=== PATIENT | female | born 1990 | race Caucasian/White ===

== ENCOUNTER 2017-11-19 08:51 | Emergency (ER) | payer OTHER ==
--- NOTE | 2017-11-19 09:05 | PDOC ---
History of Present Illness <Radha Gould - Last Filed: 11/19/17 13:37> - History of Present Illness Initial Comments: 26 year old female with PMH of an ovarian cyst and nephrolithiasis presenting with sudden onset right sided abdominal pain radiating to her right flank/ back for the past one hour with nausea and diarrhea. She does feel that it is difficult to fully urinate along with a sensation of urgency. She states this may be similar in quality to her previous episode of nephrolithiasis 2-3 year ago. Denies fevers, chills, constipation, vomiting, headache, focal neuro deficit, hematuria, cough, or chest pain. 11/19/17 09:41 <Moy Henderson - Last Filed: 11/19/17 13:50> - General Stated Complaint: ABD PAIN Time Seen by Provider: 11/19/17 09:05 Past History <Radha Gould - Last Filed: 11/19/17 13:37> - Past Medical History Asthma: No Diabetes: No HTN: No - Reproductive History (#): 3 Para: 1 Cervical CA: No Dysfunctional Uterine Bleeding: No Ectopic : No Endometrial CA: No Polycystic Ovaries: No Therapeutic (s) & number: Yes Tubal Ligation: No Spontaneous : 1 - Immunization History Immunization Up to Date: Yes - Suicide/Smoking/Psychosocial Hx Smoking Status: No Smoking History: Never smoked Have you smoked in the past 12 months: No Number of Cigarettes Smoked Daily: 0 Hx Alcohol Use: No Drug/Substance Use Hx: No Substance Use Type: None <Moy Henderson - Last Filed: 11/19/17 13:50> - Past Medical History Allergies/Adverse Reactions: Allergies Allergy/AdvReac Type Severity Reaction Status Date / Time acetaminophen [From Percocet] Allergy Verified 11/19/17 09:11 oxycodone HCl [From Percocet] Allergy Verified 11/19/17 09:11 Home Medications: Ambulatory Orders Ibuprofen [Motrin -] 400 mg PO QID PRN #28 tablet 11/23/15 Ibuprofen [Motrin -] 600 mg PO TID PRN #90 tablet 11/19/17 Review of Systems - Review of Systems Constitutional: No: Chills, Diaphoresis, Fever HEENTM: No: Blurred Vision, Tearing, Recent change in vision Respiratory: No: Cough, Orthopnea, Shortness of Breath Cardiac (ROS): No: Chest Pain, Edema ABD/GI: Yes: Diarrhea, Nausea, Poor Appetite. No: Rectal Bleeding, Vomiting, Indigestion : Yes: Frequency, Flank Pain, Urgency. No: Burning, Dysuria Musculoskeletal: Yes: Back Pain. No: Joint Pain, Joint Swelling Integumentary: No: Bruising, Change in Color, Lumps, Pruritus Neurological: No: Headache, Numbness, Paresthesia Hematologic/Lymphatic: No: Blood Clots, Easy Bleeding <Moy Henderson - Last Filed: 11/19/17 13:50> *Physical Exam - Vital Signs Last Vital Signs Temp Pulse Resp BP Pulse Ox 97.5 F L 76 16 104/70 98 11/19/17 09:11 11/19/17 09:11 11/19/17 09:11 11/19/17 09:11 11/19/17 09:28 <Radha Gould - Last Filed: 11/19/17 13:37> - Physical Exam General Appearance: Yes: Nourished, Appropriately Dressed, Apparent Distress, Mild Distress HEENT: positive: EOMI, DAYANA, Normal ENT Inspection, Normal Voice Neck: positive: Trachea midline, Normal Thyroid, Supple. negative: Tender, Rigid Respiratory/Chest: positive: Lungs Clear, Normal Breath Sounds. negative: Chest Tender, Respiratory Distress, Accessory Muscle Use Cardiovascular: positive: Regular Rhythm, Regular Rate Gastrointestinal/Abdominal: positive: Normal Bowel Sounds, Flat, Soft. negative : Tender Musculoskeletal: positive: Normal Inspection. negative: CVA Tenderness Extremity: positive: Normal Capillary Refill, Normal Inspection, Normal Range of Motion. negative: Tender Integumentary: positive: Normal Color, Dry, Warm Neurologic: positive: manager talent II-XII NML intact, Fully Oriented, Alert, Normal Mood/ Affect, Normal Response <Moy Henderson - Last Filed: 11/19/17 13:50> ED Treatment Course - LABORATORY CBC & Chemistry Diagram: 11/19/17 10:07 11/19/17 10:07 - ADDITIONAL ORDERS Additional order review: Laboratory Results 11/19/17 11/19/17 11/19/17 10:20 10:20 10:07 Sodium 137 Potassium 4.5 Chloride 107 Carbon Dioxide 25 Anion Gap 5 L BUN 11 Creatinine 0.7 Creat Clearance w eGFR > 60 Random Glucose 84 Calcium 8.3 L Total Bilirubin 0.7 D AST 14 L ALT 21 Alkaline Phosphatase 81 Total Protein 7.0 Albumin 3.7 Urine Color Yellow Urine Appearance Slcloudy Urine pH 7.0 Ur Specific [place] 1.013 Urine Protein Negative Urine Glucose (UA) Negative Urine Ketones Negative Urine Blood 3+ H Urine Nitrite Positive Urine Bilirubin Negative Urine Urobilinogen Negative Ur Leukocyte Esterase Trace Urine WBC (Auto) 6 Urine RBC (Auto) 23 Ur Epithelial Cells Rare Urine Bacteria Many Urine Mucus Rare Urine HCG, Qual Negative 11/19/17 10:07 RBC 5.38 H MCV 70.2 L MCHC 33.0 RDW 14.0 MPV 9.1 Neutrophils % 61.1 D Lymphocytes % 27.6 D Monocytes % 7.7 Eosinophils % 2.9 Basophils % 0.7 - RADIOLOGY Radiology Studies Ordered: Category Date Time Status SPIRAL- RENAL-STONE CT [CT] Stat CT Scan 11/19/17 11:06 Completed - Medications Given in the ED: ED Medications Discontinued Medications Generic Name Dose Route Start Last Admin Trade Name New PRN Reason Stop Dose Admin Ketorolac Tromethamine 15 mg 11/19/17 09:17 11/19/17 11:10 Toradol Injection - IVPUSH 11/19/17 09:18 15 mg ONCE ONE Administration Ondansetron HCl 4 mg 11/19/17 09:41 11/19/17 10:00 Zofran Injection IVPUSH 11/19/17 09:42 4 mg ONCE ONE Administration Sodium Chloride 1,000 ml 11/19/17 09:17 11/19/17 09:31 Normal Saline - IV 11/19/17 09:18 1,000 ml ONCE ONE Administration <Radha Gould - Last Filed: 11/19/17 13:37> - LABORATORY CBC & Chemistry Diagram: 11/19/17 10:07 11/19/17 10:07 <Moy Henderson - Last Filed: 11/19/17 13:50> Medical Decision Making - Medical Decision Making 26 year old female with PMH of nephrolithiasis presenting with right flank pain concerning for the same and CT abdomen corroborating stone in the bladder. Small right ovarian cyst that appears to be mildly symptomatic or asymptomatic ( convoluted in the setting of renal colic) Pain much improved after Toradol and NS. Will DC with ibuprofen and return precautions. 11/19/17 13:43 <Moy Henderson - Last Filed: 11/19/17 13:50> *DC/Admit/Observation/Transfer - Discharge Dispostion Admit: No <Radha Gould - Last Filed: 11/19/17 13:37> <Og Hendersonprosper - Last Filed: 11/19/17 13:50> Diagnosis at time of Disposition: Renal colic on right side - Discharge Dispostion Disposition: HOME Condition at time of disposition: Improved - Prescriptions Prescriptions: Ibuprofen [Motrin -] 600 mg PO TID PRN #90 tablet PRN Reason: Pain - Referrals Referrals: Herminio Vasques MD [Primary Care Provider] - Raimundo Cerna MD [Staff Physician] - - Patient Instructions Printed Discharge Instructions: Kidney Stones -- Adult Additional Instructions: you should follow up with urologist, call to schedule with dr. Cerna see referral information for phone number. or you can see your urologist if you already have one. return for fever , vomiting. persistant pain or any concerns. you can take ibuprofen 600 mg every 8 hrs as needed for pain.
[2017-11-19] MEDS ORDERED: SODIUM CHLORIDE 0.9% 1000 ML INFUS.BAG IV ONE (09:17)
[2017-11-19] MEDS ORDERED: KETOROLAC TROMETHAMINE 15 MG/ML VIAL IVPUSH ONE (09:17)
[2017-11-19 09:19] VITALS: BMI 30.9
--- NOTE | 2017-11-19 09:37 | PDOC ---
Attending Attestation - Resident Resident Name: Moy Henderson - ED Attending Attestation I have performed the following: I have examined & evaluated the patient, The case was reviewed & discussed with the resident, I agree w/resident's findings & plan, Exceptions are as noted - HPI HPI: 11/19/17 09:22 26 yo F with h/o ovarian cyst and kidney stones, here with c/o rlq pain radiating to groin. started this am. awoke pt from sleep. c/o nausea, no vomiting. no f/c no urinary compalints. is currently menstruating. no mod factors. 11/19/17 10:20 - Physicial Exam PE: 11/19/17 13:35 awake alert NAD lungs clear bilaterally heart rrr no mrg. abd soft mild right mid quad ttp, no rebond no guarding. no cva tenderness. ND. skin warm and dry. - Medical Decision Making 11/19/17 13:35 26 yo F with h/o renal stones here with c/o right sided abd pain, differential renal colic, uti pyelo, ruptured ovarian cyst. and related complaints. less likely cyst due to fact pt currently menstruating plan ct renal stone ua labs. reassess. ct with small right hydro and stone in the bladder, likely passed stone. small incidental right ovarian cyst. on repeat examination pt without pain. will dc home with urology followup.
[2017-11-19] MEDS ORDERED: ONDANSETRON 4 MG/2 ML VIAL IVPUSH ONE (09:41)
[2017-11-19] MEDS ORDERED: KETOROLAC TROMETHAMINE 15 MG/ML VIAL ONE (09:51)
[2017-11-19] MEDS ORDERED: ONDANSETRON 4 MG/2 ML VIAL ONE (09:51)
[2017-11-19 10:27] LABS: BASO % 0.7 % (0-2.0); EOS % 2.9 % (0-4.5); HEMATOCRIT 37.8 % (32.4-45.2); HEMOGLOBIN 12.5 GM/dL (10.7-15.3); LYMPH % 27.6 % (8-40); MCH 23.2 pg (25.7-33.7); MEAN CELL VOLUME 70.2 fl (80-96); MEAN PLT VOLUME 9.1 fl (7.5-11.1); MONO % 7.7 % (3.8-10.2); NEUT % 61.1 % (42.8-82.8); PLATELET COUNT 297 K/MM3 (134-434); RBC 5.38 M/mm3 (3.60-5.2); WHITE BLOOD COUNT 5.7 K/mm3 (4.0-10.0)
[2017-11-19 10:39] LABS: URINE APPEARANCE SLCLOUDY; URINE BILIRUBIN NEGATIVE (<2.0 mg/dL); URINE BLOOD 3+ (NEGATIVE); URINE COLOR YELLOW; URINE GLUCOSE (UA) NEGATIVE (NEGATIVE); URINE KETONE NEGATIVE (NEGATIVE); URINE LEUK ESTERASE TRACE (NEGATIVE); URINE NITRITE POSITIVE (NEGATIVE); URINE PROTEIN NEGATIVE (NEGATIVE); URINE UROBILINOGEN NEGATIVE mg/dL (0.2-1.0)
[2017-11-19 10:45] LABS: ALBUMIN 3.7 g/dl (3.4-5.0); ANION GAP 5 (8-16); BLOOD UREA NITROGEN 11 mg/dL (7-18); CALCIUM 8.3 mg/dL (8.5-10.1); CHLORIDE 107 mmol/L (98-107); CO2 25 mmol/L (21-32); CREATININE 0.7 mg/dL (0.55-1.02); GLUCOSE,RANDOM 84 mg/dL (74-106); POTASSIUM 4.5 mmol/L (3.5-5.1); SGOT/AST 14 U/L (15-37); SGPT/ALT 21 U/L (12-78); SODIUM 137 mmol/L (136-145)
[2017-11-19 10:48] LABS: EPI CELLS RARE /HPF (FEW); URINE BACTERIA MANY /hpf (NONE SEEN); URINE MUCUS RARE
[2017-11-19 10:48] LABS: ALK PHOS 81 U/L (45-117); BILIRUBIN,TOTAL 0.7 mg/dL (0.2-1.0)
[2017-11-19 14:19] VITALS: BP 116/75; PULSE 75; TEMP 98.2
== END 2017-11-19 14:20 | disposition home or self-care (01) ==
LOC: JER 08:51
PROC: 3E033GC Introduction of Other Therapeutic Substance into Peripheral Vein, Percutaneous Approach (ICD-10-PCS; principal; 2017-11-19)
PROC: 3E0333Z Introduction of Anti-inflammatory into Peripheral Vein, Percutaneous Approach (ICD-10-PCS; 2017-11-19)
DX: N20.0 Calculus of kidney (principal); Z87.442 Personal history of urinary calculi; N83.201 Unspecified ovarian cyst, right side
CPT/HCPCS: 36415; 74176; 80053; 81003; 81015; 84703; 85025; 99285-25; J7030

== ENCOUNTER 2017-11-22 05:36 | Emergency (ER) | payer OTHER ==
[2017-11-22 05:47] VITALS: TEMP 97.3; BMI 28.5
[2017-11-22] MEDS ORDERED: MAG HYDROX/AL HYDROX/SIMETH 30 ML UNIT-DOSE CUP PO ONE ×3 (05:55→09:31)
[2017-11-22] MEDS ORDERED: FAMOTIDINE 20 MG/50 ML IVPB 20 MG/50 ML MG IVPB ONE (05:55)
[2017-11-22] MEDS ORDERED: ONDANSETRON 4 MG/2 ML VIAL IVPB ONE (05:55)
[2017-11-22] MEDS ORDERED: ACETAMINOPHEN 1000 MG/100 ML VIAL (NON FORMULARY) IVPB ONE (05:55)
[2017-11-22] MEDS ORDERED: SODIUM CHLORIDE 1,000 ML IV STA (05:55)
[2017-11-22] MEDS ORDERED: ACETAMINOPHEN INJECTION 100 ML IVPB ONE (05:59)
[2017-11-22] MEDS ORDERED: ONDANSETRON 4 MG/2 ML VIAL ONE (06:00)
[2017-11-22] MEDS ORDERED: MAG HYDROX/AL HYDROX/SIMETH 30 ML UNIT-DOSE CUP ONE ×3 (06:00→09:38)
--- NOTE | 2017-11-22 06:06 | PDOC ---
History of Present Illness - General Chief Complaint: Pain Stated Complaint: ABD PAIN Time Seen by Provider: 11/22/17 05:45 - History of Present Illness Initial Comments: 11/22/17 06:09 "The patient is a 26 year old female, with a significant past medical history of nephrolithiasis and ovarian cysts, who presents to the emergency department with intermittent epigastric and RUQ pain over the past 2 days. The patient reports that she was in this ED two days ago for R flank pain and was diagnosed with a kidney stone. The flank pain has since subsided. However, over the past two days, the patient reports that she began to develop epigastric pain radiating into her chest. She has also been nauseous and has had a decreased appetite but denies any fever, chills, chest pain, vomiting, diarrhea, hematochezia, melena or dysuria. The patient reports that she has been taking Ibuprofen 600mg multiple times per day on an empty stomach for pain without relief of symptoms. Allergies: None reported. Past Surgical History: None reported. Social History: Non-smoker. Denies alcohol or drug use. " Past History - Past Medical History Allergies/Adverse Reactions: Allergies Allergy/AdvReac Type Severity Reaction Status Date / Time acetaminophen [From Percocet] Allergy Verified 11/23/17 10:20 oxycodone HCl [From Percocet] Allergy Verified 11/23/17 10:20 Home Medications: Ambulatory Orders Ibuprofen [Motrin -] 600 mg PO TID PRN #90 tablet 11/19/17 Cephalexin [Keflex] 500 mg PO TID #9 capsule 11/22/17 Asthma: No COPD: No Diabetes: No HTN: No Kidney Stones: Yes - Reproductive History (#): 3 Para: 1 Cervical CA: No Dysfunctional Uterine Bleeding: No Ectopic : No Endometrial CA: No Polycystic Ovaries: No Therapeutic (s) & number: Yes Tubal Ligation: No Spontaneous : 1 - Immunization History Immunization Up to Date: Yes - Suicide/Smoking/Psychosocial Hx Smoking Status: No Smoking History: Never smoked Have you smoked in the past 12 months: No Number of Cigarettes Smoked Daily: 0 Information on smoking cessation initiated: No Hx Alcohol Use: No Drug/Substance Use Hx: No Substance Use Type: None Review of Systems - Review of Systems Comments:: 11/22/17 06:11 "GENERAL/CONSTITUTIONAL: No fever or chills. No weakness. HEAD, EYES, EARS, NOSE AND THROAT: No change in vision. No ear pain or discharge. No sore throat. CARDIOVASCULAR: + chest pain. RESPIRATORY: No cough, wheezing, or hemoptysis. GASTROINTESTINAL: +Nausea, abdominal pain. No vomiting, diarrhea or constipation. GENITOURINARY: No dysuria, frequency, or change in urination. MUSCULOSKELETAL: No joint or muscle swelling or pain. No neck or back pain. SKIN: No rash. NEUROLOGIC: No headache, vertigo, loss of consciousness, or change in strength/ sensation. ENDOCRINE: No increased thirst. No abnormal weight change. HEMATOLOGIC/LYMPHATIC: No anemia, easy bleeding, or history of blood clots. ALLERGIC/IMMUNOLOGIC: No hives or skin allergy. " *Physical Exam - Vital Signs Last Vital Signs Temp Pulse Resp BP Pulse Ox 97.3 F L 78 18 116/81 100 11/22/17 05:40 11/22/17 05:40 11/22/17 05:40 11/22/17 05:40 11/22/17 05:40 - Physical Exam Comments: 11/22/17 06:11 "GENERAL: Awake, alert, and fully oriented, in no acute distress. HEAD: No signs of trauma. EYES: PERRLA, EOMI, sclera anicteric, conjunctiva clear. ENT: Auricles normal inspection, hearing grossly normal, nares patent, oropharynx clear without exudates. Moist mucosa. NECK: Nontender, no stepoffs, Normal ROM, supple, no lymphadenopathy, JVD, or masses. LUNGS: Breath sounds equal, clear to auscultation bilaterally. No wheezes, and no crackles. HEART: Regular rate and rhythm, normal S1 and S2, no murmurs, rubs or gallops. ABDOMEN: + Epigastric and RUQ tenderness. Soft, normoactive bowel sounds. No guarding, no rebound. No masses. EXTREMITIES: Normal range of motion, no edema. No clubbing or cyanosis. No cords, erythema, or tenderness. NEUROLOGICAL: Cranial nerves II through XII intact. 5/5 strength and sensation in all extremities. Normal speech, normal gait, normal cerebellar function. SKIN: Warm, dry, normal turgor, no rashes or lesions noted. " Heart Score/ECG Review - History History: Slightly suspicious - Electrocardiogram EKG: Normal - Age Age: </= 45 - Risk Factors Based on the list above the patient has:: No risk factors known - Troponin Troponin: </= normal limit - Score Heart Score - Total: 0 - ECG Impressions Comment:: 11/22/17 06:40 NSR, no MITCHELL/STDs, no TWIs, axis wnl, intervals wnl, rate 86 ED Treatment Course - LABORATORY CBC & Chemistry Diagram: 11/22/17 06:14 11/22/17 06:14 - RADIOLOGY Radiology Studies Ordered: Category Date Time Status ABDOMEN US [US] Stat Ultrasound 11/22/17 05:55 Ordered Medical Decision Making - Medical Decision Making 11/22/17 06:03 26 F with epigastric and RUQ pain. Pt likely with gastritis 2/2 excessive NSAID use due to recent kidney stone. Also consider biliary colic but less likely. Will r/o with RUQ sono. Pt not exhibiting signs of renal colic today. Pt also complaining of pain radiating to her chest. Likely acid reflux, but will r/o ACS with EKG and trop. Pt with no PE risk factors, PERC score 0. - Labs, lipase - RUQ sono - GI cocktail Pt signed out to oncoming attending at 7 am, pending studies and reevaluation. *DC/Admit/Observation/Transfer Diagnosis at time of Disposition: Epigastric pain, UTI (urinary tract infection) - Discharge Dispostion Disposition: HOME Condition at time of disposition: Good - Prescriptions Prescriptions: Cephalexin [Keflex] 500 mg PO TID #9 capsule - Referrals Referrals: Herminio Vasques MD [Primary Care Provider] - - Patient Instructions Printed Discharge Instructions: Urinary Tract Infection Additional Instructions: Drink plenty of fluids. Keflex as prescribed. [id number] Pepcid as directed on package. Follow-up with your primary care provider one to 2 days. Return to emergency department for any severe worsening symptoms or for any concerns. - Post Discharge Activity Forms/Work/School Notes: Back to Work - Attestations Physician Attestion: 11/26/17 01:41 I, Dr. Asa Aguirre MD, attest that this document has been prepared under my direction and personally reviewed by me in its entirety. I further attest, that it accurately reflects all work, treatment, procedures and medical decision -making performed by me.
[2017-11-22 08:06] LABS: BASO % 0.2 % (0-2.0); EOS % 0.4 % (0-4.5); HEMATOCRIT 36.3 % (32.4-45.2); HEMOGLOBIN 11.9 GM/dL (10.7-15.3); LYMPH % 6.8 % (8-40); MCHC 32.9 g/dl (32.0-36.0); MEAN CELL VOLUME 69.7 fl (80-96); MEAN PLT VOLUME 9.7 fl (7.5-11.1); MONO % 5.4 % (3.8-10.2); NEUT % 87.2 % (42.8-82.8); PLATELET COUNT 268 K/MM3 (134-434); RDW 14.4 % (11.6-15.6); WHITE BLOOD COUNT 10.1 K/mm3 (4.0-10.0)
[2017-11-22 08:13] LABS: URINE APPEARANCE SLCLOUDY; URINE BILIRUBIN NEGATIVE (<2.0 mg/dL); URINE BLOOD 2+ (NEGATIVE); URINE COLOR DKYELLOW; URINE GLUCOSE (UA) 1+ (NEGATIVE); URINE KETONE TRACE (NEGATIVE); URINE NITRITE NEGATIVE (NEGATIVE); URINE UROBILINOGEN 4.0 E.U/dl mg/dL (0.2-1.0)
[2017-11-22 08:20] LABS: URINE LEUK ESTERASE 1+ (NEGATIVE); URINE PROTEIN 2+ (NEGATIVE)
[2017-11-22 08:25] LABS: ALBUMIN 2.9 g/dl (3.4-5.0); ANION GAP 12 (8-16); BILIRUBIN,TOTAL 0.5 mg/dL (0.2-1.0); BLOOD UREA NITROGEN 10 mg/dL (7-18); CALCIUM 8.3 mg/dL (8.5-10.1); CHLORIDE 105 mmol/L (98-107); CO2 22 mmol/L (21-32); CREATININE 0.9 mg/dL (0.55-1.02); GLUCOSE,RANDOM 129 mg/dL (74-106); LIPASE 79 U/L (73-393); SGPT/ALT 39 U/L (12-78); SODIUM 139 mmol/L (136-145); TOT PROT 6.5 g/dl (6.4-8.2)
[2017-11-22 08:26] LABS: ALK PHOS 111 U/L (45-117)
[2017-11-22 08:28] LABS: EPI CELLS RARE /HPF (FEW); URINE BACTERIA MANY /hpf (NONE SEEN); URINE HYALINE CAST 4 /lpf; URINE MUCUS RARE
[2017-11-22 08:55] LABS: POTASSIUM 4.2 mmol/L (3.5-5.1); SGOT/AST 47 U/L (15-37)
[2017-11-22] MEDS ORDERED: DICYCLOMINE HCL 10 MG CAPSULE PO ONE (09:21)
[2017-11-22] MEDS ORDERED: LIDOCAINE VISCOUS 2% ORAL/TOP 100 ML BOTTLE MM ONE (09:24)
[2017-11-22] MEDS ORDERED: diphenhydrAMINE HCL 12.5 MG/5 ML UNIT-DOSE CUPS PO ONE (09:31)
[2017-11-22] MEDS ORDERED: LIDOCAINE VISCOUS 2% ORAL/TOP 20 ML UNIT-DOSE CUP ONE ×3 (09:33→09:39)
[2017-11-22] MEDS ORDERED: DICYCLOMINE HCL 10 MG CAPSULE ONE (09:33)
[2017-11-22] MEDS ORDERED: diphenhydrAMINE HCL 12.5 MG/5 ML BULK BOTTLE ONE ×2 (09:33→09:38)
--- NOTE | 2017-11-22 10:04 | PDOC ---
*Physical Exam - Vital Signs Last Vital Signs Temp Pulse Resp BP Pulse Ox 97.3 F L 78 18 116/81 100 11/22/17 05:40 11/22/17 05:40 11/22/17 05:40 11/22/17 05:40 11/22/17 05:40 ED Treatment Course - LABORATORY CBC & Chemistry Diagram: 11/22/17 06:14 11/22/17 06:14 - ADDITIONAL ORDERS Additional order review: Laboratory Results 11/22/17 11/22/17 11/22/17 07:03 07:00 06:14 Sodium 139 Potassium 4.2 Chloride 105 Carbon Dioxide 22 Anion Gap 12 BUN 10 Creatinine 0.9 Creat Clearance w eGFR > 60 Random Glucose 129 H Calcium 8.3 L Total Bilirubin 0.5 D AST 47 H ALT 39 Alkaline Phosphatase 111 Creatine Kinase Troponin I Total Protein 6.5 Albumin 2.9 L Lipase 79 Urine Color Dkyellow Urine Appearance Slcloudy Urine pH 5.0 D Ur Specific [place] 1.025 Urine Protein 2+ H Urine Glucose (UA) 1+ H Urine Ketones Trace H Urine Blood 2+ H Urine Nitrite Negative Urine Bilirubin Negative Urine Urobilinogen 4.0 e.u/dl H Ur Leukocyte Esterase 1+ H Urine WBC (Auto) 18 Urine RBC (Auto) 2 Ur Epithelial Cells Rare Urine Bacteria Many Hyaline Casts 4 Urine Mucus Rare Urine HCG, Qual Negative 11/22/17 06:14 Sodium Potassium Chloride Carbon Dioxide Anion Gap BUN Creatinine Creat Clearance w eGFR Random Glucose Calcium Total Bilirubin AST ALT Alkaline Phosphatase Creatine Kinase 40 Troponin I < 0.02 Total Protein Albumin Lipase Urine Color Urine Appearance Urine pH Ur Specific [place] Urine Protein Urine Glucose (UA) Urine Ketones Urine Blood Urine Nitrite Urine Bilirubin Urine Urobilinogen Ur Leukocyte Esterase Urine WBC (Auto) Urine RBC (Auto) Ur Epithelial Cells Urine Bacteria Hyaline Casts Urine Mucus Urine HCG, Qual 11/22/17 06:14 RBC 5.20 MCV 69.7 L MCHC 32.9 RDW 14.4 MPV 9.7 Neutrophils % 87.2 H D Lymphocytes % 6.8 L D Monocytes % 5.4 Eosinophils % 0.4 D Basophils % 0.2 - Medications Given in the ED: ED Medications Discontinued Medications Generic Name Dose Route Start Last Admin Trade Name Freq PRN Reason Stop Dose Admin Acetaminophen 1,000 mg 11/22/17 05:55 11/22/17 06:24 Ofirmev Injection - IVPB 11/22/17 05:56 1,000 mg ONCE ONE Administration Al Hydroxide/Mg Hydroxide 30 ml 11/22/17 05:55 11/22/17 06:24 Mylanta Oral Suspension - PO 11/22/17 05:56 30 ml ONCE ONE Administration Dicyclomine HCl 10 mg 11/22/17 09:21 11/22/17 09:41 Bentyl - PO 11/22/17 09:22 10 mg ONCE ONE Administration Famotidine/Sodium Chloride 20 mg in 50 mls @ 100 mls/hr 11/22/17 05:55 07:14 Pepcid 20 Mg Premixed Ivpb - IVPB 11/22/17 06:24 100 mls/hr ONCE ONE Administration Sodium Chloride 1,000 mls @ 1,000 mls/hr 11/22/17 05:55 11/22/17 06:25 Normal Saline - IV 11/22/17 06:54 1,000 mls/hr ASDIR STA Administration Lidocaine HCl 15 ml 11/22/17 09:24 11/22/17 09:41 Xylocaine 2% Viscous MM 11/22/17 09:25 15 ml ONCE ONE Administration Ondansetron HCl 4 mg 11/22/17 05:55 11/22/17 06:24 Zofran Injection IVPB 11/22/17 05:56 4 mg ONCE ONE Administration Medical Decision Making - Medical Decision Making 11/22/17 14:14 Status post medications patient feels much better. No tolerating fluids. Slight evidence of UTI on urinalysis. We'll treat with Keflex Pepcid have patient follow up with her doctor 1-2 days she'll return to ED for any fever or vomiting severe worsening pain for any concerns. Findings, need for follow-up, strict return instructions discussed with patient. *DC/Admit/Observation/Transfer Diagnosis at time of Disposition: Epigastric pain UTI (urinary tract infection) Qualifiers: Urinary tract infection type: site unspecified Hematuria presence: with hematuria Qualified Code(s): N39.0 - Urinary tract infection, site not specified - Discharge Dispostion Condition at time of disposition: Good Admit: No - Prescriptions Prescriptions: Cephalexin [Keflex] 500 mg PO TID #9 capsule - Referrals Referrals: Herminio Vasques MD [Primary Care Provider] - - Patient Instructions Printed Discharge Instructions: Urinary Tract Infection Additional Instructions: Drink plenty of fluids. Keflex as prescribed. [id number] Pepcid as directed on package. Follow-up with your primary care provider one to 2 days. Return to emergency department for any severe worsening symptoms or for any concerns. - Post Discharge Activity Forms/Work/School Notes: Back to Work
[2017-11-22 11:14] VITALS: BP 120/74; PULSE 74
--- NOTE | 2017-11-23 10:31 | EKG ---
Test Reason : Blood Pressure : / mmHG Vent. Rate : 086 BPM Atrial Rate : 086 BPM P-R Int : 164 ms QRS Dur : 084 ms QT Int : 368 ms P-R-T Axes : 012 039 014 degrees QTc Int : 440 ms NORMAL SINUS RHYTHM NORMAL ECG NO PREVIOUS ECGS AVAILABLE Confirmed by ATUL SAGE, INÉS ([id number]) on 11/23/2017 10:30:49 AM Referred By: Confirmed By:INÉS POLLARD MD
== END 2017-11-22 11:14 | disposition home or self-care (01) ==
LOC: JER 05:36
PROC: 3E033NZ Introduction of Analgesics, Hypnotics, Sedatives into Peripheral Vein, Percutaneous Approach (ICD-10-PCS; principal; 2017-11-22)
PROC: 3E033GC Introduction of Other Therapeutic Substance into Peripheral Vein, Percutaneous Approach (ICD-10-PCS; 2017-11-22)
PROC: 3E0337Z Introduction of Electrolytic and Water Balance Substance into Peripheral Vein, Percutaneous Approach (ICD-10-PCS; 2017-11-22)
DX: N39.0 Urinary tract infection, site not specified (principal); R10.13 Epigastric pain
CPT/HCPCS: 36415; 76705-TC; 80053; 81003; 81015; 82550; 83690; 84484; 84703; 85025; 87086; 87186; 93005; 93010; 99284-25; J0131; J7030

== ENCOUNTER 2017-11-23 10:16 | Inpatient (IN) | payer OTHER ==
[2017-11-23 10:26] VITALS: BMI 28.5
--- NOTE | 2017-11-23 10:40 | PDOC ---
History of Present Illness - General History Source: Patient Exam Limitations: No Limitations - History of Present Illness Initial Comments: 11/23/17 11:07 The patient is a 26 year old female, with a significant past medical history of nephrolithiasis and ovarian cysts, who returns to the emergency department with persistent right flank and epigastric pain since Tuesday with new onset of dysuria this morning. The patient was seen in the ED for the same complaints yesterday and was diagnosed with UTI with prescription for Cephalexin [Keflex] 500 mg PO TID. The patient denies picking up the antibiotics. She states she has been taking 2-4 Ibuprofen 600mg daily since the onset of symptoms on Tuesday. She denies taking ibuprofen yesterday. She states her partner told her she felt very warm last night, but she denies recording her temperature. She also reports a mild headache now. She denies chest pain, shortness of breath, and dizziness. She denies fever, chills, nausea, vomit, diarrhea and constipation. She denies frequency, urgency and hematuria. Allergies: percocet, acetaminophen Past Surgical History: None reported. Social History: Non-smoker. Denies alcohol or drug use. <Faby Nam - Last Filed: 11/23/17 13:49> <Sola Couch - Last Filed: 11/23/17 14:06> - General Chief Complaint: Pain Stated Complaint: REVISIT/ ABD PAIN Time Seen by Provider: 11/23/17 10:39 Past History <Faby Nam - Last Filed: 11/23/17 13:49> - Past Medical History Asthma: No COPD: No Diabetes: No HTN: No Kidney Stones: Yes - Reproductive History (#): 3 Para: 1 Cervical CA: No Dysfunctional Uterine Bleeding: No Ectopic : No Endometrial CA: No Polycystic Ovaries: No Therapeutic (s) & number: Yes Tubal Ligation: No Spontaneous : 1 - Immunization History Immunization Up to Date: Yes - Suicide/Smoking/Psychosocial Hx Smoking Status: No Smoking History: Never smoked Have you smoked in the past 12 months: No Number of Cigarettes Smoked Daily: 0 Information on smoking cessation initiated: No Hx Alcohol Use: No Drug/Substance Use Hx: No Substance Use Type: None <Sola Couch - Last Filed: 11/23/17 14:06> - Past Medical History Allergies/Adverse Reactions: Allergies Allergy/AdvReac Type Severity Reaction Status Date / Time acetaminophen [From Percocet] Allergy Verified 11/23/17 10:20 oxycodone HCl [From Percocet] Allergy Verified 11/23/17 10:20 Home Medications: Ambulatory Orders Ibuprofen [Motrin -] 600 mg PO TID PRN #90 tablet 11/19/17 Cephalexin [Keflex] 500 mg PO TID #9 capsule 11/22/17 Review of Systems - Review of Systems Able to Perform ROS?: Yes Comments:: 11/23/17 11:08 GENERAL/CONSTITUTIONAL: No fever or chills. No weakness. HEAD, EYES, EARS, NOSE AND THROAT: No change in vision. No ear pain or discharge. No sore throat. GASTROINTESTINAL:(+) epigastric pain. No nausea, vomiting, diarrhea or constipation. GENITOURINARY: (+) dysuria, No frequency, or change in urination. CARDIOVASCULAR: No chest pain or shortness of breath. RESPIRATORY: No cough, wheezing, or hemoptysis. MUSCULOSKELETAL: No joint or muscle swelling or pain. No neck or back pain. SKIN: No rash NEUROLOGIC: (+) headache, No vertigo, loss of consciousness, or change in strength/sensation. ENDOCRINE: No increased thirst. No abnormal weight change. HEMATOLOGIC/LYMPHATIC: No anemia, easy bleeding, or history of blood clots. ALLERGIC/IMMUNOLOGIC: No hives or skin allergy. <Faby Nam - Last Filed: 11/23/17 13:49> *Physical Exam - Vital Signs Last Vital Signs Temp Pulse Resp BP Pulse Ox 98.3 F 102 H 16 129/75 100 11/23/17 10:21 11/23/17 10:21 11/23/17 10:21 11/23/17 10:21 11/23/17 10:21 - Physical Exam Comments: 11/23/17 11:10 Constitutional: (+) uncomfortable appearing. Awake, alert, oriented. No acute distress. Head: Normocephalic. Atraumatic Eyes: PERRL. EOMI. Conjunctivae are not pale. ENT: Mucous membranes are moist and intact. Posterior pharynx without exudates or erythema. Uvula midline. Neck: Supple. Full ROM. No lymphadenopathy. Cardiovascular: (+) tachycardic rate. Regular rhythm. S1, S2 regular. Distal pulses are 2+ and symmetric. Pulmonary/Chest: No evidence of respiratory distress. Clear to auscultation bilaterally No wheezing, rales or rhonchi. Abdominal: (+) tenderness to epigastric, periumbilical, and bilateral CVA. Soft and non-distended. No rebound, guarding or rigidity. No organomegaly. No palpable masses. Good bowel sounds. Musculoskeletal: No edema. No cyanosis. No clubbing. Full range of motion in all extremities. Nocalf tenderness. Radial/pedal pulses are intact and 2+ bilaterally Skin: Skin is warm and dry. No petechiae. No purpura. Neurological: Alert and oriented to person, place, and time. Cranial nerves II -XII are grossly intact. Normal speech. Strength is grossly symmetric. No sensory deficits. Psychiatric: Good eye contact. Normal interaction, affect and behavior. <Faby Nam - Last Filed: 11/23/17 13:49> - Vital Signs Last Vital Signs Temp Pulse Resp BP Pulse Ox 98.3 F 102 H 16 129/75 100 11/23/17 10:21 11/23/17 10:21 11/23/17 10:21 11/23/17 10:21 11/23/17 10:21 <Sola Couch - Last Filed: 11/23/17 14:06> ED Treatment Course - LABORATORY CBC & Chemistry Diagram: 11/23/17 10:51 11/23/17 10:51 <Faby Nam - Last Filed: 11/23/17 13:49> - LABORATORY CBC & Chemistry Diagram: 11/23/17 10:51 11/23/17 10:51 <Sola Couch - Last Filed: 11/23/17 14:06> Medical Decision Making - Medical Decision Making 11/23/17 13:[address] Bland, covering Dr. Vasques, who accepts this patient for admission. <Faby Nam - Last Filed: 11/23/17 13:49> - Medical Decision Making 11/23/17 11:34 a/p: 26yo female presents for the 3rd ED visit for abd pain and b/l flank pain -pt dx with a UTI 2 days ago -given rx for ibuprofen and for keflex -fever last night, still with flank pain, nausea, epigastric pain -negative gb us yesterday -concern for pyelo vs pancreatitis -will obtain labs, cultures, ct abd/pelvis for further eval 11/23/17 14:05 pt with pyelo iv abx orderd cultures pending Dr. Vasques covered by Dr. Bland who accepts pt to service pt updated and agrees to stay for further eval <Sola Couch - Last Filed: 11/23/17 14:06> *DC/Admit/Observation/Transfer - Attestations Scribe Attestion: 11/23/17 11:10 Documentation prepared by Faby Nam, acting as medical corps officer for Sola Couch DO, <Faby Nam - Last Filed: 11/23/17 13:49> - Discharge Dispostion Admit: Yes - Attestations Physician Attestion: 11/23/17 14:06 I, Dr. Sola Couch DO, attest that this document has been prepared under my direction and personally reviewed by me in its entirety. I further attest, that it accurately reflects all work, treatment, procedures and medical decision -making performed by me. <Sola Couch - Last Filed: 11/23/17 14:06> Diagnosis at time of Disposition: Pyelocystitis - Discharge Dispostion Condition at time of disposition: Fair - Referrals Referrals: Herminio Vasques MD [Primary Care Provider] -
[2017-11-23] MEDS ORDERED: SODIUM CHLORIDE 0.9% 1000 ML INFUS.BAG IV ONE (11:04)
[2017-11-23] MEDS ORDERED: FAMOTIDINE 20 MG/50 ML IVPB 20 MG/50 ML MG IVPB ONE ×2 (11:04→11:09)
[2017-11-23] MEDS ORDERED: METOCLOPRAMIDE HCL INJECTION 10 MG/2 ML VIAL IVPUSH ONE (11:04)
[2017-11-23] MEDS ORDERED: KETOROLAC TROMETHAMINE 30 MG/1 ML VIAL IVPUSH ONE (11:04)
[2017-11-23] MEDS ORDERED: KETOROLAC TROMETHAMINE 30 MG/1 ML VIAL ONE (11:09)
[2017-11-23] MEDS ORDERED: METOCLOPRAMIDE HCL INJECTION 10 MG/2 ML VIAL ONE (11:09)
[2017-11-23 11:12] LABS: URINE APPEARANCE SLCLOUDY; URINE BILIRUBIN NEGATIVE (<2.0 mg/dL); URINE COLOR YELLOW; URINE GLUCOSE (UA) NEGATIVE (NEGATIVE); URINE KETONE 1+ (NEGATIVE); URINE NITRITE NEGATIVE (NEGATIVE)
[2017-11-23 11:13] LABS: HEMATOCRIT 36.7 % (32.4-45.2); HEMOGLOBIN 11.9 GM/dL (10.7-15.3); MCH 22.4 pg (25.7-33.7); MCHC 32.3 g/dl (32.0-36.0); MEAN CELL VOLUME 69.3 fl (80-96); MEAN PLT VOLUME 8.6 fl (7.5-11.1); PLATELET COUNT 287 K/MM3 (134-434); RDW 14.3 % (11.6-15.6); URINE LEUK ESTERASE 2+ (NEGATIVE); URINE PROTEIN 1+ (NEGATIVE); WHITE BLOOD COUNT 11.2 K/mm3 (4.0-10.0)
[2017-11-23 11:14] LABS: EPI CELLS RARE /HPF (FEW); URINE BACTERIA RARE /hpf (NONE SEEN); URINE MUCUS RARE
[2017-11-23] MEDS ORDERED: CEFTRIAXONE 1 GM in DEXTROSE 5%-WATER - 100 ML IVPB ONE (11:32)
[2017-11-23] MEDS ORDERED: CEFTRIAXONE 1 GM/50 ML BAG ONE (11:39)
[2017-11-23 11:41] LABS: CHLORIDE 105 mmol/L (98-107); POTASSIUM 4.2 mmol/L (3.5-5.1); SODIUM 136 mmol/L (136-145)
[2017-11-23 11:46] LABS: ALBUMIN 2.8 g/dl (3.4-5.0); ALK PHOS 130 U/L (45-117); ANION GAP 5 (8-16); BILIRUBIN,TOTAL 0.5 mg/dL (0.2-1.0); BLOOD UREA NITROGEN 6 mg/dL (7-18); CALCIUM 8.2 mg/dL (8.5-10.1); CO2 26 mmol/L (21-32); CREATININE 0.9 mg/dL (0.55-1.02); GLUCOSE,RANDOM 102 mg/dL (74-106); SGOT/AST 44 U/L (15-37); SGPT/ALT 52 U/L (12-78); TOT PROT 6.5 g/dl (6.4-8.2)
[2017-11-23] MEDS ORDERED: IBUPROFEN 600 MG TABLET (FP) PO ONE (18:01)
[2017-11-23] MEDS ORDERED: ONDANSETRON 4 MG/2 ML VIAL IVPUSH PRN (18:04)
[2017-11-23] MEDS: SODIUM CHLORIDE 1,000 ML IV SCH (18:27)
[2017-11-23] MEDS ORDERED: ONDANSETRON *ODT* 4 MG TABLET SL PRN (19:43)
[2017-11-24] MEDS ORDERED: DEXTROSE 5%-WATER - 50 ML IVPB ONE (09:22)
[2017-11-24] MEDS ORDERED: cefTRIAXone SODIUM 1 GM VIAL ONE (09:22)
[2017-11-24] MEDS: CEFTRIAXONE 1 GM in DEXTROSE 5%-WATER - 50 ML IVPB SCH (09:27)
[2017-11-24] MEDS: KETOROLAC TROMETHAMINE 30 MG/1 ML VIAL IVPUSH PRN ×2 (09:44→14:48)
--- NOTE | 2017-11-24 10:07 | PN ---
Progress Note, Physician Chief Complaint: ID Full note dictated - Current Medication List Current Medications: Active Medications Sodium Chloride (Normal Saline -) 1,000 mls @ 100 mls/hr IV ASDIR BRIGIDA Last Admin: 11/23/17 18:27 Dose: 100 mls/hr Ceftriaxone Sodium 1 gm/ (Dextrose) 50 mls @ 100 mls/hr IVPB DAILY BRIGIDA PRN Reason: Protocol Last Admin: 11/24/17 09:27 Dose: 100 mls/hr Ketorolac Tromethamine (Toradol Injection -) 30 mg IVPUSH Q6H PRN PRN Reason: PAIN LEVEL 7 - 10 Stop: 11/28/17 19:42 Last Admin: 11/24/17 09:44 Dose: 30 mg Ondansetron HCl (Zofran Injection) 4 mg IVPUSH Q8H PRN PRN Reason: NAUSEA Ondansetron HCl (Zofran Odt -) 4 mg SL Q6H PRN PRN Reason: NAUSEA AND/OR VOMITING - Objective Vital Signs: Vital Signs Temperature 98.4 F 11/24/17 09:20 Pulse Rate 82 11/24/17 09:20 Respiratory Rate 20 11/24/17 09:20 Blood Pressure 135/97 11/24/17 09:20 O2 Sat by Pulse Oximetry (%) 98 11/23/17 21:00 Constitutional: Yes: Well Nourished, No Distress HENT: Yes: WNL, Atraumatic Neck: Yes: Supple Cardiovascular: Yes: S1, S2 Respiratory: Yes: WNL, Regular, CTA Bilaterally Gastrointestinal: Yes: WNL, Normal Bowel Sounds, Soft, Other (Suprapubic tenderness). No: Tenderness Edema: No Labs: CBC, BMP 11/23/17 10:51 11/23/17 10:51 Problem List - Problems (1) Epigastric pain Code(s): R10.13 - EPIGASTRIC PAIN (2) UTI (urinary tract infection) Code(s): N39.0 - URINARY TRACT INFECTION, SITE NOT SPECIFIED Assessment/Plan Microbiology 01/20/15 08:10 Urine - Urine Clean Catch Urine Culture - Final NO GROWTH OBTAINED 11/23/17 10:51 Urine - Urine Clean Catch Urine Culture - Preliminary Lactose Fermenting Neg Bacilli 11/22/17 07:03 Urine - Urine Clean Catch Urine Culture - Preliminary Lactose Fermenting Neg Bacilli Laboratory Tests 11/23/17 11/23/17 11/23/17 10:51 10:51 10:51 WBC 11.2 H RBC 5.30 H Hct 36.7 Plt Count 287 Neutrophils % (Manual) 62.0 Band Neutrophils % 14.0 Lymphocytes % (Manual) 10.0 Monocytes % (Manual) 13 H Eosinophils % (Manual) 1.0 Sodium 136 Potassium 4.2 BUN 6 L Creatinine 0.9 Total Bilirubin 0.5 AST 44 H ALT 52 Alkaline Phosphatase 130 H Lipase Ur Leukocyte Esterase 2+ H Urine WBC (Auto) 24 Urine RBC (Auto) 3 11/23/17 11:00 WBC RBC Hct Plt Count Neutrophils % (Manual) Band Neutrophils % Lymphocytes % (Manual) Monocytes % (Manual) Eosinophils % (Manual) Sodium Potassium BUN Creatinine Total Bilirubin AST ALT Alkaline Phosphatase Lipase 62 L Ur Leukocyte Esterase Urine WBC (Auto) Urine RBC (Auto) Assessment Pyelonehritis GNB Plan Ceftriaxone 1 iván daily No sure etiology of epigastric pain with worsening with eating Get JOSE L Szymanski MD
[2017-11-24] MEDS ORDERED: ACETAMINOPHEN 325 MG TABLET (FP) PO PRN (10:46)
--- NOTE | 2017-11-24 10:48 | HP ---
Admitting History and Physical - Primary Care Physician PCP: Aleksandr Bland - Admission Chief Complaint: Right flank pain. UTI History of Present Illness: The patient is a 26 year old female, with a significant past medical history of nephrolithiasis and ovarian cysts, who returns to the emergency department with persistent right flank and epigastric pain since Tuesday with new onset of dysuria this morning. The patient was seen in the ED for the same complaints yesterday and was diagnosed with UTI with prescription for Cephalexin [Keflex] 500 mg PO TID. The patient denies picking up the antibiotics. She states she has been taking 2-4 Ibuprofen 600mg daily since the onset of symptoms on Tuesday. She denies taking ibuprofen yesterday. She states her partner told her she felt very warm last night, but she denies recording her temperature. She also reports a mild headache now. She denies chest pain, shortness of breath, and dizziness. She denies fever, chills, nausea, vomit, diarrhea and constipation. She denies frequency, urgency and hematuria. History Source: Patient Limitations to Obtaining History: No Limitations - Past Medical History ...LMP: 12/19/17 - Smoking History Smoking history: Never smoked Have you smoked in the past 12 months: No Aproximately how many cigarettes per day: 0 - Alcohol/Substance Use Hx Alcohol Use: No Home Medications - Allergies Allergies/Adverse Reactions: Allergies Allergy/AdvReac Type Severity Reaction Status Date / Time acetaminophen [From Percocet] Allergy Verified 11/23/17 10:20 oxycodone HCl [From Percocet] Allergy Verified 11/23/17 10:20 - Home Medications Home Medications: Ambulatory Orders Ibuprofen [Motrin -] 600 mg PO TID PRN #90 tablet 11/19/17 Cephalexin [Keflex] 500 mg PO TID #9 capsule 11/22/17 Review of Systems - Review of Systems Constitutional: reports: No Symptoms HENT: reports: No Symptoms Neck: reports: No Symptoms Cardiovascular: reports: No Symptoms Respiratory: reports: No Symptoms Gastrointestinal: reports: Abdominal Pain Genitourinary: reports: Flank Pain (right) Musculoskeletal: reports: No Symptoms Integumentary: reports: No Symptoms Neurological: reports: No Symptoms Endocrine: reports: No Symptoms Hematology/Lymphatic: reports: No Symptoms Psychiatric: reports: No Symptoms Physical Examination Vital Signs: Vital Signs Temperature 98.4 F 11/24/17 09:20 Pulse Rate 82 11/24/17 09:20 Respiratory Rate 20 11/24/17 09:20 Blood Pressure 135/97 11/24/17 09:20 O2 Sat by Pulse Oximetry (%) 98 11/23/17 21:00 Constitutional: Yes: Well Nourished, No Distress, Calm Cardiovascular: Yes: Regular Rate and Rhythm Respiratory: Yes: Regular Gastrointestinal: Yes: Normal Bowel Sounds, Soft Musculoskeletal: Yes: WNL Extremities: Yes: WNL Edema: No Peripheral Pulses WNL: Yes Neurological: Yes: Alert, Oriented Psychiatric: Yes: Alert, Oriented Labs: CBC, BMP 11/23/17 10:51 11/23/17 10:51 Imaging - Results Cat Scan: Report Reviewed Problem List - Problems (1) Pyelonephritis Assessment/Plan: -ID consult appreciated -IV abx -Encouraged PO fluids -pain management Code(s): N12 - TUBULO-INTERSTITIAL NEPHRITIS, NOT SPCF ACUTE OR CHRONIC (2) Renal colic on right side Code(s): N23 - UNSPECIFIED RENAL COLIC (3) UTI (urinary tract infection) Assessment/Plan: -ID consult appreciated -IV abx -Encouraged PO fluids -pain management Code(s): N39.0 - URINARY TRACT INFECTION, SITE NOT SPECIFIED Assessment/Plan see problem list
--- NOTE | 2017-11-24 11:14 | CONS ---
DATE OF CONSULTATION: HISTORY: This is a 26-year-old female in the [employer] who was admitted with chief complaint of pain in her right flank associated with intermittent epigastric discomfort, which is precipitated in part by eating. She was seen in the emergency room now for the 3rd time before being admitted and has been seen 3 times within a week and treated with Keflex for urinary tract infection. She took the antibiotics but felt warm with chills and had fever upon evaluation in the ER on her now 3rd trip and was admitted for IV antibiotics for UTI. She has a history of kidney stones in the past but says that she passed these and has not had any urological instrumentation or other medical problems. She is a member of the [employer] and until recently was stationed in the [place]. Here in [place] she lives with her one child who is well at home. She has no other localizing complaints. PAST MEDICAL HISTORY: Negative. MEDICATIONS: Keflex. ALLERGIES: PERCOCET. SOCIAL HISTORY: Nonsmoker. Occasional alcohol. HIV tested negative in the . Lives with her son. FAMILY HISTORY: Noncontributory. REVIEW OF SYSTEMS: Respiratory: No cough or shortness of breath. Cardiac: No chest pain, palpitations, history of murmur. Gastrointestinal: Epigastric discomfort on and off. No nausea. No diarrhea. No vomiting. Genitourinary: Positive dysuria. PHYSICAL EXAMINATION: General: This is a heavyset, alert, pleasant woman in no acute distress. Vital Signs: Her T-max is 101.9 but currently afebrile and in no distress. The temperature is 98.4, pulse 82, blood pressure 135/97, respirations 20. Neck: Supple. No adenopathy. Lungs: Clear to P and A. Heart: S1, S2. Regular rhythm. No audible murmur or gallop. Abdomen: Soft. No localized epigastric tenderness but some suprapubic tenderness noted. No guarding or rebound. Extremities: No clubbing, cyanosis, or edema. LABORATORY DATA: The white count was 11.2, hemoglobin 11.9, platelets 287 with 14% bands noted on her differential blood count. The BUN was 6, creatinine 0.9, AST 49, ALT 52, alkaline phosphatase 132, lipase 62. Urinalysis with 24 WBCs, [address] of the abdomen and pelvis was performed, which shows normal biliary structures. No evidence of obstructive uropathy or stones. Fibroid uterus and areas of hypoperfusion within both kidneys "nephronia". ASSESSMENT: Suspect clinical symptoms most compatible with urinary tract infection and pyelonephritis. She already has a gram-negative moriah growing from her original urine culture November 22 and November 23, a lactose forklift wheel loader. Currently, she appears to be stable. Would keep her on ceftriaxone 1 g daily as ordered pending final cultures. Note that she has been partially treated with Keflex prior to admission. Lastly, as to etiology of her epigastric discomfort, not really sure. I will order a gallbladder sonogram to look for gallstones or other biliary tract pathology. RUBI LYNN M.D. [id number]
[2017-11-24] MEDS: SODIUM CHLORIDE 1,000 ML IV SCH (17:57)
[2017-11-25 07:26] LABS: BASO % 0.5 % (0-2.0); EOS % 1.4 % (0-4.5); HEMATOCRIT 34.9 % (32.4-45.2); HEMOGLOBIN 11.4 GM/dL (10.7-15.3); MCH 22.4 pg (25.7-33.7); MCHC 32.7 g/dl (32.0-36.0); MEAN CELL VOLUME 68.5 fl (80-96); MEAN PLT VOLUME 8.1 fl (7.5-11.1); MONO % 16.5 % (3.8-10.2); NEUT % 48.6 % (42.8-82.8); PLATELET COUNT 298 K/MM3 (134-434); RBC 5.09 M/mm3 (3.60-5.2); RDW 14.3 % (11.6-15.6); WHITE BLOOD COUNT 8.4 K/mm3 (4.0-10.0)
[2017-11-25 07:39] LABS: CHLORIDE 106 mmol/L (98-107); POTASSIUM 3.9 mmol/L (3.5-5.1); SODIUM 138 mmol/L (136-145)
[2017-11-25 07:51] LABS: ALBUMIN 2.5 g/dl (3.4-5.0); ALK PHOS 127 U/L (45-117); ANION GAP 8 (8-16); BILIRUBIN,TOTAL 0.3 mg/dL (0.2-1.0); BLOOD UREA NITROGEN 7 mg/dL (7-18); CALCIUM 7.9 mg/dL (8.5-10.1); CO2 24 mmol/L (21-32); CREATININE 0.6 mg/dL (0.55-1.02); GLUCOSE,RANDOM 85 mg/dL (74-106); SGOT/AST 18 U/L (15-37); SGPT/ALT 35 U/L (12-78)
--- NOTE | 2017-11-25 08:34 | PN ---
Progress Note, Physician - Current Medication List Current Medications: Active Medications Acetaminophen (Tylenol -) 650 mg PO Q6H PRN PRN Reason: PAIN OR FEVER Sodium Chloride (Normal Saline -) 1,000 mls @ 100 mls/hr IV ASDIR BRIGIDA Last Admin: 11/24/17 17:57 Dose: 100 mls/hr Ceftriaxone Sodium 1 gm/ (Dextrose) 50 mls @ 100 mls/hr IVPB DAILY BRIGIDA PRN Reason: Protocol Last Admin: 11/24/17 09:27 Dose: 100 mls/hr Ketorolac Tromethamine (Toradol Injection -) 30 mg IVPUSH Q6H PRN PRN Reason: PAIN LEVEL 7 - 10 Stop: 11/28/17 19:42 Last Admin: 11/24/17 14:48 Dose: 30 mg Ondansetron HCl (Zofran Injection) 4 mg IVPUSH Q8H PRN PRN Reason: NAUSEA Ondansetron HCl (Zofran Odt -) 4 mg SL Q6H PRN PRN Reason: NAUSEA AND/OR VOMITING - Objective Vital Signs: Vital Signs Temperature 98.5 F 11/25/17 06:30 Pulse Rate 75 11/25/17 06:30 Respiratory Rate 20 11/25/17 06:30 Blood Pressure 132/85 11/25/17 06:30 O2 Sat by Pulse Oximetry (%) 99 11/24/17 21:00 Labs: CBC, BMP 11/25/17 05:35 11/25/17 05:35 Problem List - Problems (1) Pyelonephritis Assessment/Plan: -ID consult appreciated -IV abx -Encouraged PO fluids -pain management -Urology Code(s): N12 - TUBULO-INTERSTITIAL NEPHRITIS, NOT SPCF ACUTE OR CHRONIC (2) UTI (urinary tract infection) Assessment/Plan: -cultures -abx per id Code(s): N39.0 - URINARY TRACT INFECTION, SITE NOT SPECIFIED
--- NOTE | 2017-11-25 08:43 | CONSULT ---
Consult - text type - Consultation Consultation Note: CC: uti/right colic HPI: Patient is a 27 year old female with a history of uti with right colic. Patient is comfortable without nausea or vomiting. She denies gross hematuria or previous kidney stones or pyelonephritis. PE afeb mild right CVAT ct scan reviewed imp right pyelonephritis/uti plan antibiotics as per Dr. Szymanski follow-up as outpatient discussed x 15 minutes
[2017-11-25] MEDS ORDERED: cefTRIAXone SODIUM 1 GM VIAL ONE (09:32)
[2017-11-25] MEDS ORDERED: DEXTROSE 5%-WATER - 50 ML IVPB ONE (09:32)
[2017-11-25] MEDS: CEFTRIAXONE 1 GM in DEXTROSE 5%-WATER - 50 ML IVPB SCH (09:34)
--- NOTE | 2017-11-25 15:26 | PN ---
Progress Note, Physician Chief Complaint: ID Afebrile Major complaints is epigastric pain ?? NO fever chills - Current Medication List Current Medications: Active Medications Acetaminophen (Tylenol -) 650 mg PO Q6H PRN PRN Reason: PAIN OR FEVER Sodium Chloride (Normal Saline -) 1,000 mls @ 100 mls/hr IV ASDIR BIRGIDA Last Admin: 11/24/17 17:57 Dose: 100 mls/hr Ceftriaxone Sodium 1 gm/ (Dextrose) 50 mls @ 100 mls/hr IVPB DAILY BRIGIDA PRN Reason: Protocol Last Admin: 11/25/17 09:34 Dose: 100 mls/hr Ketorolac Tromethamine (Toradol Injection -) 30 mg IVPUSH Q6H PRN PRN Reason: PAIN LEVEL 7 - 10 Stop: 11/28/17 19:42 Last Admin: 11/24/17 14:48 Dose: 30 mg Ondansetron HCl (Zofran Injection) 4 mg IVPUSH Q8H PRN PRN Reason: NAUSEA Ondansetron HCl (Zofran Odt -) 4 mg SL Q6H PRN PRN Reason: NAUSEA AND/OR VOMITING - Objective Vital Signs: Vital Signs Temperature 98.3 F 11/25/17 15:16 Pulse Rate 88 11/25/17 15:16 Respiratory Rate 18 11/25/17 15:16 Blood Pressure 133/98 11/25/17 15:16 O2 Sat by Pulse Oximetry (%) 97 11/25/17 09:00 Constitutional: Yes: Well Nourished, No Distress Neck: Yes: WNL, Supple Respiratory: Yes: WNL, Regular, CTA Bilaterally Gastrointestinal: Yes: WNL, Normal Bowel Sounds, Soft, Tenderness Labs: CBC, BMP 11/25/17 05:35 11/25/17 05:35 Problem List - Problems (1) Epigastric pain Code(s): R10.13 - EPIGASTRIC PAIN (2) UTI (urinary tract infection) Code(s): N39.0 - URINARY TRACT INFECTION, SITE NOT SPECIFIED Assessment/Plan Microbiology 11/23/17 11:00 Blood - Peripheral Venous Blood Culture - Preliminary NO GROWTH OBTAINED AFTER 48 HOURS, INCUBATION TO CONTINUE FOR 3 DAYS. 11/23/17 11:00 Blood - Peripheral Venous Blood Culture - Preliminary NO GROWTH OBTAINED AFTER 48 HOURS, INCUBATION TO CONTINUE FOR 3 DAYS. Laboratory Tests 11/23/17 11/25/17 11/25/17 10:51 05:35 05:35 WBC 8.4 Hgb 11.4 Hct 34.9 Plt Count 298 BUN 7 Creatinine 0.6 Alkaline Phosphatase 127 H Ur Leukocyte Esterase 2+ H Urine WBC (Auto) 24 Urine RBC (Auto) 3 Assessment E Coli UTI better but etiology of abd pain unclear Plan Could switch to Keflex she was on before for today of 10 more days GI consult prior to discharge Stephon SAEG
[2017-11-25] MEDS: KETOROLAC TROMETHAMINE 30 MG/1 ML VIAL IVPUSH PRN (15:42)
--- NOTE | 2017-11-25 17:30 | CON.GI ---
Consult Consult Specialty:: a Reason for Consultation:: epigastric pain - History of Present Illness History of Present Illness: a 26-year-old female with UTI. Responding well to current therapy however reports epigastric pain that started around the same time she begun developing uti-related symptoms. Associated with nausea, no vomiting, or diarrhea. No hisotry of chronci NSAIDs, ETOH. No prior history of PUD, gastritis, GERD. No dysphagia, odynophagia, jaundice, melena, hematochezia, hematemesisi. No weight loss. Normal Lipase, Minimally elevated ALP. Negative urine HCG. - History Source History Provided By: Patient, Medical Record - Past Medical History ...LMP: 12/19/17 - Alcohol/Substance Use Hx Alcohol Use: No - Smoking History Smoking history: Never smoked Have you smoked in the past 12 months: No Aproximately how many cigarettes per day: 0 Home Medications - Allergies Allergies/Adverse Reactions: Allergies Allergy/AdvReac Type Severity Reaction Status Date / Time acetaminophen [From Percocet] Allergy Verified 11/23/17 10:20 oxycodone HCl [From Percocet] Allergy Verified 11/23/17 10:20 - Home Medications Home Medications: Ambulatory Orders Amox-Tr/K Cl [Augmentin - 875Mg Tablet] 1 tab PO BID #10 tablet 11/27/17 Pantoprazole Sodium [Protonix -] 40 mg PO DAILY #30 tablet.ec 11/27/17 Family Disease History - Family Disease History Family History: Unremarkable (Noncontributory w) Review of Systems Findings/Remarks: as per H&P and HPI Physical Exam-GI Vital Signs: Vital Signs Temperature 98.3 F 11/25/17 15:16 Pulse Rate 88 11/25/17 15:16 Respiratory Rate 18 11/25/17 15:16 Blood Pressure 133/98 11/25/17 15:16 O2 Sat by Pulse Oximetry (%) 97 11/25/17 09:00 Constitutional: Yes: Well Nourished, No Distress, Calm Eyes: Yes: Conjunctiva Clear HENT: Yes: Atraumatic Neck: Yes: Supple Cardiovascular: Yes: Regular Rate and Rhythm Respiratory: Yes: Regular ...Auscultate: Yes: Normoactive Bowel Sounds Labs: CBC, BMP 11/25/17 05:35 11/25/17 05:35 Laboratory Last Values WBC 8.4 K/mm3 (4.0-10.0) 11/25/17 05:35 RBC 5.09 M/mm3 (3.60-5.2) 11/25/17 05:35 Hgb 11.4 GM/dL (10.7-15.3) 11/25/17 05:35 Hct 34.9 % (32.4-45.2) 11/25/17 05:35 MCV 68.5 fl (80-96) L 11/25/17 05:35 MCH 22.4 pg (25.7-33.7) L 11/25/17 05:35 MCHC 32.7 g/dl (32.0-36.0) 11/25/17 05:35 RDW 14.3 % (11.6-15.6) 11/25/17 05:35 Plt Count 298 K/MM3 (134-434) 11/25/17 05:35 MPV 8.1 fl (7.5-11.1) 11/25/17 05:35 Total Counted 100 11/23/17 10:51 Neutrophils % 48.6 % (42.8-82.8) D 11/25/17 05:35 Neutrophils % (Manual) 62.0 % (42.8-82.8) 11/23/17 10:51 Band Neutrophils % 14.0 % 11/23/17 10:51 Lymphocytes % 33.0 % (8-40) D 11/25/17 05:35 Lymphocytes % (Manual) 10.0 % (8-40) 11/23/17 10:51 Monocytes % 16.5 % (3.8-10.2) H D 11/25/17 05:35 Monocytes % (Manual) 13 % (3.8-10.2) H 11/23/17 10:51 Eosinophils % 1.4 % (0-4.5) D 11/25/17 05:35 Eosinophils % (Manual) 1.0 % (0-4.5) 11/23/17 10:51 Basophils % 0.5 % (0-2.0) 11/25/17 05:35 Microcytosis 1+ 11/23/17 10:51 Sodium 138 mmol/L (136-145) 11/25/17 05:35 Potassium 3.9 mmol/L (3.5-5.1) 11/25/17 05:35 Chloride 106 mmol/L (98-107) 11/25/17 05:35 Carbon Dioxide 24 mmol/L (21-32) 11/25/17 05:35 Anion Gap 8 (8-16) 11/25/17 05:35 BUN 7 mg/dL (7-18) 11/25/17 05:35 Creatinine 0.6 mg/dL (0.55-1.02) 11/25/17 05:35 Creat Clearance w eGFR > 60 (>60) 11/25/17 05:35 Random Glucose 85 mg/dL (74-106) 11/25/17 05:35 Lactic Acid 0.9 mmol/L (0.0-2.0) 11/23/17 18:45 Calcium 7.9 mg/dL (8.5-10.1) L 11/25/17 05:35 Total Bilirubin 0.3 mg/dL (0.2-1.0) D 11/25/17 05:35 AST 18 U/L (15-37) 11/25/17 05:35 ALT 35 U/L (12-78) 11/25/17 05:35 Alkaline Phosphatase 127 U/L (45-117) H 11/25/17 05:35 Total Protein 6.0 g/dl (6.4-8.2) L 11/25/17 05:35 Albumin 2.5 g/dl (3.4-5.0) L 11/25/17 05:35 Lipase 62 U/L (73-393) L 11/23/17 11:00 Urine Color Yellow 11/23/17 10:51 Urine Appearance Slcloudy 11/23/17 10:51 Urine pH 6.0 (5.0-8.0) 11/23/17 10:51 Ur Specific [place] 1.014 (1.001-1.035) 11/23/17 10:51 Urine Protein 1+ (NEGATIVE) H 11/23/17 10:51 Urine Glucose (UA) Negative (NEGATIVE) 11/23/17 10:51 Urine Ketones 1+ (NEGATIVE) H 11/23/17 10:51 Urine Blood 2+ (NEGATIVE) H 11/23/17 10:51 Urine Nitrite Negative (NEGATIVE) 11/23/17 10:51 Urine Bilirubin Negative (<2.0 mg/dL) 11/23/17 10:51 Urine Urobilinogen 2.0 mg/dL (0.2-1.0) H 11/23/17 10:51 Ur Leukocyte Esterase 2+ (NEGATIVE) H 11/23/17 10:51 Urine WBC (Auto) 24 /hpf (3-5) 11/23/17 10:51 Urine RBC (Auto) 3 /hpf (0-3) 11/23/17 10:51 Ur Epithelial Cells Rare /HPF (FEW) 11/23/17 10:51 Urine Bacteria Rare /hpf (NONE SEEN) 11/23/17 10:51 Urine Mucus Rare 11/23/17 10:51 Urine HCG, Qual Negative 11/23/17 10:51 Imaging - Results Cat Scan: Report Reviewed Problem List - Problems (1) Epigastric abdominal pain Code(s): R10.13 - EPIGASTRIC PAIN (2) UTI (urinary tract infection) Code(s): N39.0 - URINARY TRACT INFECTION, SITE NOT SPECIFIED Assessment/Plan Given the proximity of GI/ symptoms and good response to UT therapy, I suspect the epigasgtric pain is related to the underlying UTI. Recommend to continue and finish the course of ABx as per ID, if the eigaditc pain persist beyond that, we will meet on OP bases and likely obtain anopther set of liver enzymes, RUQ US and schedule and EGD.
[2017-11-25] MEDS: SODIUM CHLORIDE 1,000 ML IV SCH (17:32)
[2017-11-25] MEDS: PANTOPRAZOLE 40 MG TABLET (FP) PO SCH (18:52)
[2017-11-26] MEDS: SODIUM CHLORIDE 1,000 ML IV SCH ×2 (06:23→15:32)
[2017-11-26] MEDS ORDERED: cefTRIAXone SODIUM 1 GM VIAL ONE (08:53)
[2017-11-26] MEDS ORDERED: DEXTROSE 5%-WATER - 50 ML IVPB ONE (08:53)
[2017-11-26] MEDS: KETOROLAC TROMETHAMINE 30 MG/1 ML VIAL IVPUSH PRN (09:28)
[2017-11-26] MEDS: PANTOPRAZOLE 40 MG TABLET (FP) PO SCH (09:29)
[2017-11-26] MEDS: CEFTRIAXONE 1 GM in DEXTROSE 5%-WATER - 50 ML IVPB SCH (09:29)
[2017-11-26] MEDS ORDERED: PT OWN MED DRAWER 7, Y5N ONE ×2 (10:14→17:51)
--- NOTE | 2017-11-26 12:27 | PN ---
Progress Note, Physician History of Present Illness: epigatric pain - Current Medication List Current Medications: Active Medications Acetaminophen (Tylenol -) 650 mg PO Q6H PRN PRN Reason: PAIN OR FEVER Sodium Chloride (Normal Saline -) 1,000 mls @ 100 mls/hr IV ASDIR [facility] Last Admin: 11/26/17 06:23 Dose: 100 mls/hr Ceftriaxone Sodium 1 gm/ (Dextrose) 50 mls @ 100 mls/hr IVPB DAILY BRIGIDA PRN Reason: Protocol Last Admin: 11/26/17 09:29 Dose: 100 mls/hr Ketorolac Tromethamine (Toradol Injection -) 30 mg IVPUSH Q6H PRN PRN Reason: PAIN LEVEL 7 - 10 Stop: 11/28/17 19:42 Last Admin: 11/26/17 09:28 Dose: 30 mg Ondansetron HCl (Zofran Injection) 4 mg IVPUSH Q8H PRN PRN Reason: NAUSEA Ondansetron HCl (Zofran Odt -) 4 mg SL Q6H PRN PRN Reason: NAUSEA AND/OR VOMITING Pantoprazole Sodium (Protonix -) 40 mg PO DAILY [facility] Last Admin: 11/26/17 09:29 Dose: 40 mg - Objective Vital Signs: Vital Signs Temperature 98.4 F 11/26/17 10:00 Pulse Rate 87 11/26/17 10:00 Respiratory Rate 16 11/26/17 10:00 Blood Pressure 127/95 11/26/17 10:00 O2 Sat by Pulse Oximetry (%) 100 11/26/17 09:00 Cardiovascular: Yes: Regular Rate and Rhythm Respiratory: Yes: Regular, CTA Bilaterally Gastrointestinal: Yes: Normal Bowel Sounds, Soft. No: Tenderness Labs: CBC, BMP 11/25/17 05:35 11/25/17 05:35 Problem List - Problems (1) Pyelonephritis Assessment/Plan: -ID consult appreciated -IV abx -Encouraged PO fluids -pain management -Urology Code(s): N12 - TUBULO-INTERSTITIAL NEPHRITIS, NOT SPCF ACUTE OR CHRONIC (2) UTI (urinary tract infection) Assessment/Plan: -cultures -abx per id Code(s): N39.0 - URINARY TRACT INFECTION, SITE NOT SPECIFIED (3) Epigastric abdominal pain Assessment/Plan: gi consult noted ppi Code(s): R10.13 - EPIGASTRIC PAIN
[2017-11-26 13:37] LABS: HEMATOCRIT 37.6 % (32.4-45.2); HEMOGLOBIN 12.2 GM/dL (10.7-15.3); MCH 22.4 pg (25.7-33.7); MCHC 32.4 g/dl (32.0-36.0); MEAN CELL VOLUME 69.1 fl (80-96); MEAN PLT VOLUME 7.9 fl (7.5-11.1); PLATELET COUNT 381 K/MM3 (134-434); RBC 5.44 M/mm3 (3.60-5.2); RDW 14.7 % (11.6-15.6); WHITE BLOOD COUNT 7.6 K/mm3 (4.0-10.0)
[2017-11-26 14:16] LABS: CHLORIDE 104 mmol/L (98-107); POTASSIUM 4.3 mmol/L (3.5-5.1); SODIUM 141 mmol/L (136-145)
[2017-11-26 14:24] LABS: ALBUMIN 2.8 g/dl (3.4-5.0); ALK PHOS 120 U/L (45-117); ANION GAP 9 (8-16); BILIRUBIN,TOTAL 0.2 mg/dL (0.2-1.0); BLOOD UREA NITROGEN 8 mg/dL (7-18); CALCIUM 8.9 mg/dL (8.5-10.1); CO2 28 mmol/L (21-32); CREATININE 0.7 mg/dL (0.55-1.02); GLUCOSE,RANDOM 87 mg/dL (74-106); LIPASE 112 U/L (73-393); SGOT/AST 19 U/L (15-37); SGPT/ALT 32 U/L (12-78); TOT PROT 6.7 g/dl (6.4-8.2)
[2017-11-26 16:02] LABS: ANISOCYTOSIS 1+; PLATELET ESTIMATE NORMAL
[2017-11-26] MEDS ORDERED: INSULIN (NOVOLOG) ASPART 100 UNITS/ML 10ML VIAL ONE (17:51)
[2017-11-27] MEDS: SODIUM CHLORIDE 1,000 ML IV SCH (03:10)
[2017-11-27] MEDS ORDERED: cefTRIAXone SODIUM 1 GM VIAL ONE (08:37)
[2017-11-27] MEDS ORDERED: DEXTROSE 5%-WATER - 50 ML IVPB ONE (08:37)
[2017-11-27] MEDS: CEFTRIAXONE 1 GM in DEXTROSE 5%-WATER - 50 ML IVPB SCH (09:00)
[2017-11-27] MEDS: KETOROLAC TROMETHAMINE 30 MG/1 ML VIAL IVPUSH PRN (09:01)
[2017-11-27] MEDS: PANTOPRAZOLE 40 MG TABLET (FP) PO SCH (09:01)
--- NOTE | 2017-11-27 10:44 | DS ---
Physical Examination Vital Signs: Vital Signs Temperature 98.4 F 11/27/17 06:13 Pulse Rate 73 11/27/17 06:13 Respiratory Rate 18 11/27/17 06:13 Blood Pressure 129/94 11/27/17 06:13 O2 Sat by Pulse Oximetry (%) 100 11/26/17 21:00 Labs: CBC, BMP 11/26/17 13:20 11/26/17 13:20 Discharge Summary Reason For Visit: PYELONEPHRITIS Current Active Problems Epigastric abdominal pain (Acute) Pyelocystitis (Acute) Pyelonephritis (Acute) Condition: Fair - Instructions Referrals: Herminio Vasques MD [Primary Care Provider] - - Home Medications Comprehensive Discharge Medication List: Ambulatory Orders Amox-Tr/K Cl [Augmentin - 875Mg Tablet] 1 tab PO BID #10 tablet 11/27/17 Pantoprazole Sodium [Protonix -] 40 mg PO DAILY #30 tablet.ec 11/27/17
[2017-11-27 15:15] VITALS: BP 139/94; PULSE 75; TEMP 98.2
== END 2017-11-27 18:22 | disposition home or self-care (01) | DRG 690 ==
LOC: JER 10:16 → JERBED 14:06 → J8W 15:38
PROVIDERS: ADMIT Family Medicine; ATTEND Family Medicine
DX: N12 Tubulo-interstitial nephritis, not specified as acute or chronic (principal); N23 Unspecified renal colic; B96.20 Unspecified Escherichia coli [E. coli] as the cause of diseases classified elsewhere
CPT/HCPCS: 36415; 74177-TC; 80053; 81003; 81015; 83605; 83690; 84703; 85025; 87040; 87086; 87186; 99285-25; J7030

== ENCOUNTER 2021-03-24 22:35 | Emergency (ER) | payer OTHER ==
[2021-03-24 22:44] VITALS: TEMP 97; BMI 29.0
[2021-03-25] MEDS ORDERED: ACETAMINOPHEN 500 MG TABLET (FP) PO ONE (00:37)
[2021-03-25] MEDS ORDERED: ACETAMINOPHEN 500 MG TABLET (FP) ONE (00:41)
[2021-03-25 02:06] VITALS: BP 128/83; PULSE 76
== END 2021-03-25 02:06 | disposition home or self-care (01) ==
LOC: JER 22:35
DX: S09.90XA Unspecified injury of head, initial encounter (principal); W22.8XXA Striking against or struck by other objects, initial encounter; Y04.0XXA Assault by unarmed brawl or fight, initial encounter
CPT/HCPCS: 70450-TC; 99284-25

== ENCOUNTER 2023-10-21 21:11 | Emergency (ER) | payer OTHER ==
[2023-10-21 21:17] VITALS: BP 135/89; PULSE 82; RESP 17; TEMP 98; BMI 23.2
[2023-10-21] MEDS ORDERED: ONDANSETRON 4 MG/2 ML VIAL ONE (22:01)
[2023-10-21] MEDS: DEXTROSE 5%-NORMAL SALINE 1,000 ML IV ONE (22:07)
[2023-10-21] MEDS: ONDANSETRON 4 MG/2 ML VIAL IVPB ONE (22:08)
[2023-10-21 22:28] LABS: ALBUMIN 4.8 g/dl (3.4-5.0); ALK PHOS 59 U/L (45-117); ANION GAP 10 mmol/L (4-13); BILIRUBIN,TOTAL 0.7 mg/dl (0.2-1); CALCIUM 10.1 mg/dl (8.5-10.1); CHLORIDE 103 mmol/L (98-107); CO2 25 mmol/L (21-32); CREATININE 0.8 mg/dl (0.6-1.3); GLUCOSE,RANDOM 99 mg/dl (74-106); POTASSIUM 3.8 mmol/L (3.5-5.1); SGOT/AST 15 U/L (15-37); SGPT/ALT 13 U/L (7-52); SODIUM 138 mmol/L (136-145); TOT PROT 7.9 g/dl (6.4-8.2)
[2023-10-21 22:29] LABS: HEMATOCRIT 43.6 % (32.4-45.2); HEMOGLOBIN 14.1 G/dL (10.7-15.3); MCH 23.3 pg (25.7-33.7); MCHC 32.4 g/dl (32.0-36.0); MEAN CELL VOLUME 71.7 fl (80-96); MEAN PLT VOLUME 10.7 fl (7.5-11.1); PLATELET COUNT 300.3 10^3/uL (134-434); RBC 6.08 10^6/uL (3.60-5.2); RDW 18.2 % (11.6-15.6); WHITE BLOOD COUNT 6.4 10^3/uL (4.0-10.8)
[2023-10-21 22:44] LABS: PLATELET ESTIMATE ADEQUATE
[2023-10-21] MEDS ORDERED: FAMOTIDINE 20 MG/50 ML IVPB 20 MG/50 ML MG IVPB ONE (23:08)
[2023-10-21] MEDS ORDERED: MAG HYDROX/AL HYDROX/SIMETH 30 ML UNIT-DOSE CUP ONE (23:08)
[2023-10-21] MEDS: FAMOTIDINE 20 MG/50 ML IVPB 20 MG/50 ML MG IVPB ONE (23:20)
[2023-10-21] MEDS: MAG HYDROX/AL HYDROX/SIMETH 30 ML UNIT-DOSE CUP PO ONE (23:20)
[2023-10-21] MEDS ORDERED: METHYLERGONOVINE MALEATE 0.2 MG/1 ML AMP IM ONE (23:28)
== END 2023-10-21 23:40 | disposition home or self-care (01) ==
LOC: FER 21:11
PROC: 3E033GC Introduction of Other Therapeutic Substance into Peripheral Vein, Percutaneous Approach (ICD-10-PCS; principal; 2023-10-21)
PROC: 3E030GC Introduction of Other Therapeutic Substance into Peripheral Vein, Open Approach (ICD-10-PCS; 2023-10-21)
PROC: 3E0337Z Introduction of Electrolytic and Water Balance Substance into Peripheral Vein, Percutaneous Approach (ICD-10-PCS; 2023-10-21)
DX: R42 Dizziness and giddiness (principal); R11.0 Nausea; R10.9 Unspecified abdominal pain; E86.0 Dehydration; R73.01 Impaired fasting glucose; Z20.822 Contact with and (suspected) exposure to COVID-19
CPT/HCPCS: 0241U-QW; 36415; 80053; 84702; 85025; 93005; 99284-25

== ENCOUNTER 2023-11-13 22:59 | Emergency (ER) | payer OTHER ==
[2023-11-13 23:07] VITALS: BP 154/117; PULSE 85; RESP 17; TEMP 98.7; BMI 23.8
== END 2023-11-14 02:21 | disposition home or self-care (01) ==
LOC: FER 22:59
DX: S50.11XA Contusion of right forearm, initial encounter (principal); S80.11XA Contusion of right lower leg, initial encounter; M79.631 Pain in right forearm; M25.561 Pain in right knee; W22.01XA Walked into wall, initial encounter
CPT/HCPCS: 99282-25

== ENCOUNTER 2024-01-13 16:53 | Emergency (ER) | payer OTHER ==
[2024-01-13 18:03] VITALS: BP 134/88; PULSE 77; RESP 18; TEMP 97.4; BMI 26.0
[2024-01-13] MEDS ORDERED: FAMOTIDINE 20 MG/50 ML IVPB 20 MG/50 ML MG IVPB ONE (18:22)
[2024-01-13] MEDS ORDERED: MAG HYDROX/AL HYDROX/SIMETH 30 ML UNIT-DOSE CUP ONE (18:22)
[2024-01-13] MEDS ORDERED: ACETAMINOPHEN INJECTION 100 ML IVPB ONE (18:22)
[2024-01-13] MEDS: ACETAMINOPHEN 1000 MG/100 ML BAG IVPB ONE (18:30)
[2024-01-13] MEDS: MAG HYDROX/AL HYDROX/SIMETH 30 ML UNIT-DOSE CUP PO ONE (18:30)
[2024-01-13 18:31] LABS: HEMATOCRIT 40.7 % (32.4-45.2); HEMOGLOBIN 12.8 G/dL (10.7-15.3); MCH 22.9 pg (25.7-33.7); MCHC 31.5 g/dl (32.0-36.0); MEAN CELL VOLUME 72.5 fl (80-96); MEAN PLT VOLUME 10.9 fl (7.5-11.1); PLATELET COUNT 306.7 10^3/uL (134-434); RBC 5.61 10^6/uL (3.60-5.2); RDW 17.2 % (11.6-15.6); WHITE BLOOD COUNT 9.2 10^3/uL (4.0-10.8)
[2024-01-13] MEDS: FAMOTIDINE 20 MG/50 ML IVPB 20 MG/50 ML MG IVPB ONE (18:31)
[2024-01-13 18:33] LABS: PLATELET ESTIMATE ADEQUATE
[2024-01-13 18:40] LABS: ALBUMIN 4.2 g/dl (3.4-5.0); BILIRUBIN,TOTAL 0.5 mg/dl (0.2-1); CALCIUM 9.9 mg/dl (8.5-10.1); CREATININE 0.8 mg/dl (0.6-1.3); POTASSIUM 4.1 mmol/L (3.5-5.1); TOT PROT 6.6 g/dl (6.4-8.2)
== END 2024-01-13 19:33 | disposition home or self-care (01) ==
LOC: FER 16:53
PROC: 3E033GC Introduction of Other Therapeutic Substance into Peripheral Vein, Percutaneous Approach (ICD-10-PCS; principal; 2024-01-13)
PROC: 3E033NZ Introduction of Analgesics, Hypnotics, Sedatives into Peripheral Vein, Percutaneous Approach (ICD-10-PCS; 2024-01-13)
DX: R11.0 Nausea (principal); R10.13 Epigastric pain; R07.9 Chest pain, unspecified
CPT/HCPCS: 36415; 71046-TC-FY; 80053; 83690; 84484; 84703; 85027; 93005; 99285-25; J0131